=== PATIENT | male | born 1985 | race Caucasian/White ===

== ENCOUNTER 2018-06-17 20:21 | Emergency (ER) | payer OTHER ==
[~2018-06-17] VITALS: Ht 177.8 cm; Wt 131.8 kg
[~2018-06-17 20:21] MED LIST: DOXYCYCLINE HY100 MG PO
[2018-06-17 20:30] VITALS: TEMP 97.7
[2018-06-17] MEDS ORDERED: INDERAL40 MG PO (21:40)
[2018-06-17] MEDS ORDERED: IMITREX50 MG PO (21:40)
[2018-06-17] MEDS ORDERED: DEPAKENE250 MG PO (21:41)
[2018-06-17] MEDS ORDERED: CYMBALTA 30MG30 MG PO (21:42)
[2018-06-17] MEDS ORDERED: ABILIFY 10MG TA10 MG PO (21:42)
[2018-06-17] MEDS ORDERED: MINIPRESS2 MG (21:43)
[2018-06-17] MEDS ORDERED: FLEXERIL 1010 MG/TAB PO (22:02)
[2018-06-17 22:22] VITALS: BP 130/84; PULSE 90
== END 2018-06-17 22:22 | disposition home or self-care (01) ==
LOC: COL.ER 20:21
DX: S96.911A Strain of unspecified muscle and tendon at ankle and foot level, right foot, initial encounter (principal); S39.012A Strain of muscle, fascia and tendon of lower back, initial encounter; F43.10 Post-traumatic stress disorder, unspecified; F17.210 Nicotine dependence, cigarettes, uncomplicated; X50.0XXA Overexertion from strenuous movement or load, initial encounter; Z90.89 Acquired absence of other organs
CPT/HCPCS: J1885

== ENCOUNTER 2018-11-11 12:45 | Outpatient (RCR) | payer OTHER ==
[~2018-11-11 12:45] MED LIST changes: +ABILIFY 10MG TA10 MG PO; +CYMBALTA 30MG30 MG PO; +DEPAKENE250 MG PO; +FLEXERIL 1010 MG/TAB PO; +IMITREX50 MG PO; +INDERAL40 MG PO; +MINIPRESS2 MG
== END 2019-01-05 | disposition home or self-care (01) ==
LOC: WSST
DX: R41.89 Other symptoms and signs involving cognitive functions and awareness (principal); Z87.820 Personal history of traumatic brain injury; F43.12 Post-traumatic stress disorder, chronic